=== PATIENT | male | born 1965 | race African-American/Black ===

== ENCOUNTER 2022-03-13 00:58 | Day surgery (SDC) | payer OTHER, SELFPAY ==
[2022-03-07 14:38] VITALS: BMI 26.6
--- NOTE | 2022-03-07 14:42 | SUR.PREOP ---
Report to the Outpatient Waiting Room, entrance under the green pavilion located off [facility], at time 1000_ on date _03/12/22 . OR Time: __1200 . - You and your visitor will be asked a series of questions to screen for COVID 19 for your protection. - Only one visitor is allowed at this time. - The patient visitor is requested to leave or wait in car when not with patient. - A mask is required within the hospital. Patients may have clear liquids (water, carbonated beverages, clear teas, apple juice) until 3 hours prior to surgery with a maximum of 20 ounces. - No food from midnight until time of surgery - Infants may have breast milk until 4 hours before surgery, formula 6 hours prior to surgery. - Children will be allowed to drink immediately following surgery. If applicable, please bring a bottle or sippy cup to assist with drinking. Juice, water, soda, and popsicles are readily available. For infants on formula, please bring formula the day of surgery. Pacifiers are allowed. Take the following medications with a SIP of water the morning of surgery: _triumiq,citalopram,divalproex,perphenazine Medications to discontinue per physician ___n/a Date to take last dose____n/a Please no make-up, nail turkmen, hairspray, perfume, deodorant, or body powder the day of surgery. No jewelry (including any body piercings) or valuables the day of surgery, leave them at home. Please take a shower or bath the night before, or the morning of, surgery with an antibacterial soap. Wear comfortable, loose fitting clothing. Children are encouraged to wear pajamas. - Jewelry must be removed prior to entering the operating room. Rings and piercings that are not removed may be cut off. - The hospital will not accept responsibility for valuables. - Please leave all valuables, including medications, at home the day of surgery. If you are going home after surgery, a licensed tour bus driver must drive you home. - NO public transportation without another adult. - We recommend that an adult stay with you for 24 hours following discharge. - We also recommend that you do not drive, make important decision, drink alcoholic beverages, or take any drugs that were not prescribed by your health care provider for at least 24 hours after your discharge time. For Pediatric surgeries, we recommend two adults accompany the child home (only one inside the building at this time). Follow any additional instructions given to you from your surgeon. If you or anyone in your household have experienced Covid symptoms in the past week, please notify your surgeon or the nurse liaison at the phone number below for possible testing. Telephone instructions given to _ulises rodríguez and asked if any additional questions and then verbalized understanding. Patient advised to call surgeon office or pre surgery nurse liaison [phone] if any additional questions.
[2022-03-13 10:35] VITALS: BP 163/102; PULSE 76; RESP 20; TEMP 37.8; O2SAT 100
[2022-03-13] MEDS: LACTATED RINGERS 1,000 ML 30 ML IV CONT (10:35)
--- NOTE | 2022-03-13 11:12 | P.PNAN_ITS ---
Anes - Initial Pre Proc Eval Procedure: Operation Date: 03/13/22 12:00 Proposed Procedures p Excisional Biopsy Right Posterior Shoulder Mass - Chelsea Hartman MD Date/Time: 03/13/22 11:12 Surgeon: Chelsea Hartman MD Pre Op Diagnosis: right posterior shoulder mass Patient Data Age: 57 Gender: M Height: 1.78 m Weight: 86.8 kg Last Vital Signs Temp 100.1 F H 03/13/22 10:35 Pulse 76 03/13/22 10:35 Resp 20 03/13/22 10:35 BP 163/102 H 03/13/22 10:35 Pulse Ox 100 03/13/22 10:35 O2 Del Method Room Air 03/13/22 10:35 Allergies Allergy/AdvReac Type Severity Reaction Status Date / Time Penicillins Allergy Intermediate Hives Verified 03/13/22 11:00 Home Medications Medication Instructions Recorded Confirmed Type citalopram 20 mg tablet 20 mg PO DAILY 08/27/21 03/13/22 History divalproex 500 mg tablet,delayed 500 mg PO Q12H 08/27/21 03/13/22 History release perphenazine 4 mg tablet 4 mg PO BID 08/27/21 03/13/22 History abacavir 600 mg-dolutegravir 50 2 tablet PO DAILY 02/13/22 03/13/22 History mg-lamivudine 300 mg tablet (Triumeq) Patient hx anesthesia problems: none Family hx anesthesia problems: none Results Review: All pre-operative results and documents have been reviewed as part of the pre- operative evaluation. [facility] Past Medical History Medical History (Updated 02/19/22 @ 10:42 by Luz Owusu [facility] [address]) Allergies Anxiety Chronic lumbar pain Depression HIV (human immunodeficiency virus infection) Hypertension Schizophrenia Surgical History Surgical History S/P trigger finger release Family History Family History Mother Hypertension Thyroid disorder Sibling Depression Anxiety Social History Social History Smoking packs per day: 0.5 Smoking cigarettes per day: 10.0 Smoking status: Current every day smoker Tobacco type: cigarettes Additional smoking assessment comments: 1/2 ppd cigarettes x 20 years Alcohol intake: unknown Substance use: current Substance use type: marijuana Other substance usage details: smoking of medical marijuana,3x a week Living arrangements: with family Spiritual care concerns: No Anes - Eval Final PreProcedure Day of Procedure 03/13/22 11:12 Patient weight: normal Heart: regular rate and rhythm Lungs: clear to auscultation Airway: Mallampati scale class II Neurological: alert and oriented Last oral intake: >/= 8 hours ASA classification: III Emergent: no Anesthetic plan: proceed Anesthesia type and monitoring: general GIVS and standard monitoring Results Review: All pre-operative results and documents have been reviewed as part of the pre- operative evaluation. Informed Consent: The patient's anesthetic plan and its attendant risks and benefits were discussed with the patient/family/POA. Questions were solicited and answers provided to the satisfaction of the patient/family/POA.
--- NOTE | 2022-03-13 11:36 | WPDHPUPDATE1 ---
History and Physical Update Update Date/Time: 03/13/22 11:36 History and Physical has been reviewed, including an updated exam of the patient. There are NO changes in the patient's condition. Risks, benefits, and alternatives have been discussed and questions answered. Patient agrees to proceed with procedure.
[2022-03-13] MEDS: ceFAZolin 2 GM/D5W 50 ML 2 GM/50 ML BAG IVPB (11:44)
[2022-03-13 12:30] VITALS: BP 99/62; PULSE 62; RESP 13; O2SAT 95
--- NOTE | 2022-03-13 12:43 | W.PM.PROC2 ---
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 After adequate induction of MAC anesthesia, the patient was prepped and draped in the normal sterile fashion. A time-out was then done to verify the patient's identity, as well as the procedure being performed. I began by localizing the area around this mass in the right posterior shoulder. Once localized, I made an incision over the mass. This was carried through the dermis into the subcutaneous tissue. Mass was noted to be confined within the subcutaneous tissue and did not involve the underlying muscle. 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 There was one central mass with multiple finger-like projections. I was able to both bluntly and sharply dissected this mass in full. It measured approximately 14 x 10 cm. It will now be sent to pathology for further review. I then copiously irrigated the cavity and further localized the tissue. Hemostasis was noted and no other pathology was grossly seen. I then closed the subcutaneous tissue with 3-0 Vicryl suture. The skin was closed with 4-0 Monocryl subcuticular suture. Dermabond was then placed on the wound. The patient tolerated the procedure well and was alert and awake in the operating room postoperatively. He will be sent to the recovery room in stable condition. Estimated Blood Loss 5 Pathology Yes Complications No immediate complications Condition Stable Disposition PACU [facility] Billing Surgery - Charge Forward: Surgery Billing
[2022-03-13 13:00] VITALS: BP 127/75; PULSE 61; RESP 20
[2022-03-13 13:30] VITALS: BP 132/72; PULSE 60; RESP 20
[2022-03-13 14:00] VITALS: BP 142/74; PULSE 62; RESP 20
== END 2022-03-13 14:35 | disposition home or self-care (01) ==
PROVIDERS: PCP Internal Medicine; Visit Provider Surgery
PROC: (CPT 24071; principal; 2022-03-13 12:00)
DX: D17.21 Benign lipomatous neoplasm of skin and subcutaneous tissue of right arm (principal); Z21 Asymptomatic human immunodeficiency virus [HIV] infection status; Z79.899 Other long term (current) drug therapy; I10 Essential (primary) hypertension; F20.9 Schizophrenia, unspecified; F41.8 Other specified anxiety disorders; F17.210 Nicotine dependence, cigarettes, uncomplicated; F12.90 Cannabis use, unspecified, uncomplicated
CPT/HCPCS: 24071; 88304; J0690; J2250; J2405; J2704; J3010; J7120